=== PATIENT | female | born 1975 | race Two or more races ===

== ENCOUNTER 2018-06-08 12:41 | Emergency (ER) | payer OTHER ==
[~2018-06-08] VITALS: Ht 177.8 cm; Wt 90.7 kg
[~2018-06-08 12:41] MED LIST: COZAAR25 MG; DICLOFENAC SODI50 MG PO; FIORICET 50-301 EACH; ORPH100T PO
== END 2018-06-08 13:52 | disposition home or self-care (01) ==
LOC: ER 12:41
DX: R07.89 Other chest pain (principal); R51 Headache; R10.2 Pelvic and perineal pain

== ENCOUNTER 2018-06-09 19:30 | Emergency (ER) | payer OTHER ==
[~2018-06-09] VITALS: Ht 165.1 cm; Wt 90.7 kg
== END 2018-06-09 23:42 | disposition home or self-care (01) ==
LOC: ER 19:30
DX: N83.292 Other ovarian cyst, left side (principal); D25.9 Leiomyoma of uterus, unspecified

== ENCOUNTER 2018-08-19 02:00 | Emergency (ER) | payer OTHER ==
[~2018-08-19] VITALS: Ht 177.8 cm; Wt 88.5 kg
[2018-08-19] MEDS ORDERED: NORVASC5 MG (02:15)
== END 2018-08-19 10:19 | disposition home or self-care (01) ==
LOC: ER 02:00
DX: N80.8 Other endometriosis (principal); R10.2 Pelvic and perineal pain